=== PATIENT | male | born 1965 | race Caucasian/White ===

== ENCOUNTER 2016-12-24 16:57 | Emergency (ER) | payer MEDICARE, MEDICAID ==
--- NOTE | 2016-12-24 17:31 | ER Document Report ---
ED Medical Screen (RME) - General Chief Complaint: Facial Droop Stated Complaint: LEFT SIDE FACIAL PARALYSIS Time Seen by Provider: 12/24/16 17:28 Mode of Arrival: Ambulatory Information source: Patient TRAVEL OUTSIDE OF THE [place] IN LAST 30 DAYS: No - HPI Patient complains to provider of: L facial droop Onset: Other - pt. with 3 day h/o L facial droop and numbness. - Related Data Allergies/Adverse Reactions: No Known Allergies Allergy (Unverified 12/24/16 17:07) Past Medical History Renal/ Medical History: Denies: Hx Peritoneal Dialysis Past Surgical History: Reports: Hx Orthopedic Surgery Physical Exam - Vital signs Vitals: Temp Pulse Resp BP Pulse Ox 98.6 F 90 20 111/75 97 12/24/16 17:08 12/24/16 17:08 12/24/16 17:08 12/24/16 17:08 12/24/16 17:08 Course - Vital Signs Vital signs: Temp Pulse Resp BP Pulse Ox 98.6 F 90 20 111/75 97 12/24/16 17:08 12/24/16 17:08 12/24/16 17:08 12/24/16 17:08 12/24/16 17:08
--- NOTE | 2016-12-24 18:12 | RADIOLOGY REPORT (SQ) ---
EXAM DESCRIPTION: CT HEAD WITHOUT COMPLETED DATE/TIME: 12/24/2016 5:59 pm REASON FOR STUDY: L facial droop COMPARISON: 01/23/2011 TECHNIQUE: Axial images acquired through the brain without intravenous contrast. Images reviewed wi th bone, brain and subdural windows. Images stored on PACS. All CT scanners at this facility use dose modulation, iterative reconstruction, and/or weight based d osing when appropriate to reduce radiation dose to as low as reasonably achievable (ALARA). [facility]: Dose Right [facility]: CareDose [facility]: Dose Right [facility]: Teradose 4D [facility]: Smart MoPub RADIATION DOSE: Up-to-date CT equipment and radiation dose reduction techniques were employed. CTDIv ol: 64.6 mGy. DLP: 1163 mGy-cm. mGy. LIMITATIONS: None. FINDINGS: VENTRICLES: Normal size and contour. CEREBRUM: No masses. No hemorrhage. No midline shift. No evidence for acute infarction. Normal gra y/white matter differentiation. No areas of low density in the white matter. CEREBELLUM: No masses. No hemorrhage. No alteration of density. No evidence for acute infarction. EXTRAAXIAL SPACES: No fluid collections. No masses. ORBITS AND GLOBE: No intra- or extraconal masses. Normal contour of globe without masses. CALVARIUM: No fracture. PARANASAL SINUSES: No fluid or mucosal thickening. SOFT TISSUES: No mass or hematoma. OTHER: No other significant finding. IMPRESSION: No acute intracranial findings. COMMENT: Quality ID # [id number]: Final reports with documentation of one or more dose reduction techniques (e.g., Automated exposure control, adjustment of the mA and/or kV according to patient size, use of iterative reconstruction technique) TECHNICAL DOCUMENTATION: JOB ID: [id number] [employer]- All Rights Reserved
[2016-12-24 18:17] LABS: ABSOLUTE EOSINOPHILS # (AUTO) 0.1 10^3/uL (0.0-0.6); ABSOLUTE LYMPHOCYTES (AUTO) 1.5 10^3/uL (0.5-4.7); ABSOLUTE MONOCYTES (AUTO) 0.8 10^3/uL (0.1-1.4); ABSOLUTE NEUT (AUTO) 4.3 10^3/uL (1.7-8.2); BASOPHILS % (AUTO) 0.6 % (0-2); EOSINOPHILS % (AUTO) 1.5 % (0-6); HEMATOCRIT 45.4 % (37.9-51.0); HEMOGLOBIN 15.4 g/dL (13.5-17.0); HGB HCT DIFFERENCE 0.8; MEAN CORPUSCULAR HEMOGLOBIN 32.7 pg (27.0-33.4); MEAN CORPUSCULAR HGB CONC 33.9 g/dL (32.0-36.0); MEAN CORPUSCULAR VOLUME 97 fl (80-97); MONOCYTES % (AUTO) 11.4 % (3-13); SEGMENTED NEUTROPHILS % (AUTO) 63.5 % (42-78); WHITE BLOOD COUNT 6.7 10^3/uL (4.0-10.5)
[2016-12-24 18:32] LABS: ALANINE AMINOTRANSFERASE 40 U/L (21-72); ALBUMIN 4.1 g/dL (3.5-5.0); ALKALINE PHOSPHATASE 83 U/L (38-126); ANION GAP 11 (5-19); ASPARTATE AMINO TRANSFERASE 29 U/L (17-59); BILIRUBIN,DIRECT 0.4 mg/dL (0.0-0.4); BILIRUBIN,TOTAL 0.4 mg/dL (0.2-1.3); BLOOD UREA NITROGEN 14 mg/dL (7-20); CARBON DIOXIDE 24 mmol/L (22-30); CHLORIDE 107 mmol/L (98-107); CREATININE RESULT 0.76 mg/dL (0.52-1.25); GLUCOSE 130 mg/dL (75-110); SODIUM 141.8 mmol/L (137-145); TOTAL PROTEIN 7.6 g/dL (6.3-8.2)
[2016-12-24] MEDS ORDERED: PREDNISONE 20 MG TABLET PO ONE (20:52)
[2016-12-24] MEDS ORDERED: VALACYCLOVIR HCL 500 MG TABLET PO ONE (20:52)
--- NOTE | 2016-12-24 20:59 | ER Document Report ---
ED General - General Chief Complaint: Facial Droop Stated Complaint: LEFT SIDE FACIAL PARALYSIS Time Seen by Provider: 12/24/16 17:28 Mode of Arrival: Ambulatory Notes: Patient is a 51-year-old male that comes emergency department for chief complaint of left sided facial paralysis. Symptoms started 3 days ago. He states his left eye gets very dry and irritated as well. He denies weakness in his arms or legs, visual changes, headache, head injury, fever, vomiting. Past medical history of orthopedic surgeries, however he denies any daily medications or medical history otherwise. He denies any other symptoms. TRAVEL OUTSIDE OF THE [place] IN LAST 30 DAYS: No - Related Data Allergies/Adverse Reactions: No Known Allergies Allergy (Unverified 12/24/16 17:07) Past Medical History - General Information source: Patient - Social History Smoking Status: Never Smoker Frequency of alcohol use: None Drug Abuse: None Lives with: Family Family History: Reviewed & Not Pertinent - Medical History Medical History: Negative Renal/ Medical History: Denies: Hx Peritoneal Dialysis Past Surgical History: Reports: Hx Orthopedic Surgery - Immunizations Immunizations up to date: Yes Hx Diphtheria, Pertussis, Tetanus Vaccination: Yes Review of Systems - Review of Systems Constitutional: No symptoms reported EENT: No symptoms reported Cardiovascular: No symptoms reported Respiratory: No symptoms reported Gastrointestinal: No symptoms reported Genitourinary: No symptoms reported Male Genitourinary: No symptoms reported Musculoskeletal: No symptoms reported Skin: No symptoms reported Hematologic/Lymphatic: No symptoms reported Neurological/Psychological: See HPI Physical Exam - Vital signs Vitals: Temp Pulse Resp BP Pulse Ox 98.6 F 90 20 111/75 97 12/24/16 17:08 12/24/16 17:08 12/24/16 17:08 12/24/16 17:08 12/24/16 17:08 Interpretation: Normal - General General appearance: Appears well, Alert In distress: None - HEENT Head: Normocephalic, Atraumatic Eyes: Normal Conjunctiva: Normal Extraocular movements intact: Yes Eyelashes: Normal Pupils: PERRL Sinus: Normal Nasal: Normal Mouth/Lips: Normal Mucous membranes: Normal Pharynx: Normal Neck: Normal - Respiratory Respiratory status: No respiratory distress Chest status: Nontender Breath sounds: Normal. No: Decreased air movement Chest palpation: Normal - Cardiovascular Rhythm: Regular. No: Tachycardia Heart sounds: Normal auscultation, S1 appreciated, S2 appreciated Murmur: No - Abdominal Inspection: Normal Distension: No distension Bowel sounds: Normal Tenderness: Nontender. No: Tender, Guarding Organomegaly: No organomegaly - Back Back: Normal, Nontender - Extremities General upper extremity: Normal inspection, Nontender, Normal strength, Normal temperature General lower extremity: Normal inspection, Nontender, Normal strength, Normal temperature - Neurological Neuro grossly intact: Yes Cognition: Normal Orientation: AAOx4 [place] Coma Scale Eye Opening: Spontaneous [place] Coma Scale Verbal: Oriented [place] Coma Scale Motor: Obeys Commands [place] Coma Scale Total: 15 Speech: Normal Cranial nerves: Facial palsy - There is drooping of the left side of the face at the mouth, patient cannot fully close left eyelid, there is flattening of the forehead on the left side he can only minimally raise his left eyebrow. 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 I did review the labs and CAT scan of the head which were performed in triage. The showed no acute abnormalities. Patient has a normal neurological exam other than paralysis of the left nerve. Discussed findings in detail with patient. Patient states that he needs cheap treatments but he does want treatment for this. Patient will be given acyclovir and prednisone. Patient will follow-up with primary care referral. Discussed return precautions. Patient states understanding and agreement. - Vital Signs Vital signs: Temp Pulse Resp BP Pulse Ox 98.6 F 90 26 H 131/93 H 98 12/24/16 17:08 12/24/16 17:08 12/24/16 21:22 12/24/16 21:22 12/24/16 21:22 - Laboratory Result Diagrams: 12/24/16 17:45 12/24/16 17:45 Laboratory results interpreted by me: 12/24/16 12/24/16 17:45 17:45 RDW 15.0 H Glucose 130 H Discharge - Discharge Clinical Impression: Facial paralysis on left side, Staley's palsy Condition: Stable Disposition: HOME, SELF-CARE Additional Instructions: Your examination is consistent with Staley's palsy. This is thought to be from a virus causing inflammation of the facial nerve which leads to difficulty blinking and paralysis of the face with numbness. Take the medications as prescribed to help treat this, symptoms may persist for a while. Resolution is difficult to predict. Follow-up with primary care for additional management. Your cat scan today was normal. Use eye drops along with the medications (lubricating eye drops over the counter ) Return to emergency department for any other concerning symptoms. Prescriptions: Acyclovir [Acyclovir 400 mg Tablet] 400 mg PO ASDIR PRN #50 tablet PRN Reason: Prednisone 80 mg PO DAILY #28 tablet Referrals: [facility] [Provider Group] - Follow up as needed
[2016-12-24 22:31] VITALS: BP 131/93
== END 2016-12-24 21:26 | disposition home or self-care (01) ==
LOC: ER 16:57
DX: G51.0 Bell's palsy (principal)
CPT/HCPCS: 99284; 36415; 85025; 80053; 70450; A9270 ×2; J7512